=== PATIENT | female | born 1970 | race American Indian/Alaskan Native ===

== ENCOUNTER 2018-05-17 17:23 | Emergency (ER) | payer OTHER ==
--- NOTE | 2018-05-17 17:28 | Emergency Department Report ---
Blank Doc - Documentation Documentation: This is a 47-year-old female that presents with difficulty swallowing. Patient denies any pain. This initial assessment/diagnostic orders/clinical plan/treatment(s) is/are subject to change based on patient's health status, clinical progression and re- assessment by fellow clinical providers in the ED. Further treatment and workup at subsequent clinical providers discretion. Patient/guardians urged not to elope from the ED as their condition may be serious if not clinically assessed and managed. Initial orders include: 1- Patient sent to [facility] for further evaluation and treatment
--- NOTE | 2018-05-17 20:05 | Emergency Department Report ---
ED Anxiety HPI - General Chief Complaint: Anxiety Stated Complaint: (R) SHOULDER PAIN/TOOTH ACHE Time Seen by Provider: 05/17/18 17:27 Source: patient Mode of arrival: Ambulatory - History of Present Illness Initial Comments: 47-year-old -L[place] female comes in reporting that she feels that she's had anxiety attack. Patient reports that this is happening 3 times in the last 2 weeks. Patient states that when she has her bad information from family members and friends mixer overwhelmed where she feels like her heart races gets emotional and often cries. Patient also reports that her throat feels for 2 days and has a dry mouth the patient also reports she has not had any water today. Patient complains that she is thirsty but has not had any water. Patient has a past medical history of bronchial asthma when she was young. Patient currently does not have a primary care provider. Patient denies any fever or chills no nausea no vomiting no chest pain no shortness of breath. Patient also complains that she feels that she has gained so much weight where she has discomfort under her chin and her neck where she cannot get comfortable. Patient reports she has an allergy to Percocet that it makes her itch but she can have Tylenol. MD Complaint: anxiety -: week(s) (2-3) Symptoms: palpitations, dry mouth, sense of impending doom Place: home Previous History of Same: No Severity: moderate Quality: intermittant Provoking factors: emotional stress Improves With: nothing Worsens With: thinking about event Associated symptoms: palpitations - Related Data Home Medications: Previous Rx's Medication Instructions Recorded Last Taken Type PARoxetine [Paxil] 10 mg PO DAILY #30 tablet 05/17/18 Unknown Rx Allergies/Adverse Reactions: Allergies Allergy/AdvReac Type Severity Reaction Status Date / Time acetaminophen [From Percocet] Allergy Itching Verified 05/17/18 17:24 oxycodone [From Percocet] Allergy Itching Verified 05/17/18 17:24 ED Review of Systems ROS: Stated complaint: (R) SHOULDER PAIN/TOOTH ACHE Other details as noted in HPI ED Past Medical Hx - Past Medical History Previous Medical History?: No - Surgical History Past Surgical History?: No - Social History Smoking Status: Never Smoker Substance Use Type: None - Medications Home Medications: Home Medications Medication Instructions Recorded Confirmed Last Taken Type PARoxetine [Paxil] 10 mg PO DAILY #30 tablet 05/17/18 Unknown Rx ED Physical Exam - General Limitations: No Limitations ED Course Vital Signs 05/17/18 17:27 Temperature 99.3 F Pulse Rate 87 Respiratory 16 Rate Blood Pressure 153/92 [Left] O2 Sat by Pulse 98 Oximetry ED Medical Decision Making - Medical Decision Making Patient has been evaluated by this provider and [facility]. Just the patient I will try her on Paxil 10 mg by mouth daily with one refill so she will have time to follow up with [facility]. Also discussed with patient to follow up with a dentist as she has multiple dental caries. N discussed with patient to follow up with her primary care provider referred her to [facility]. Patient verbalized understanding. Critical care attestation.: If time is entered above; I have spent that time in minutes in the direct care of this critically ill patient, excluding procedure time. ED Disposition Clinical Impression: Anxiety and depression, Dental caries, Obesity (BMI 35.0-39.9 without comorbidity) Disposition: TO HOME OR SELFCARE Is pt being admited?: No Does the pt Need Aspirin: No Condition: Stable Instructions: Anxiety (ED), Depression (ED), Obesity (ED) Additional Instructions: Please take anxiety medication as prescribed. It is very important for you to follow up with [facility] I have listed their information below. It is very important for you to follow up with the dentist I have listed several below for your convenience. I have also listed several primary care providers that she can follow-up to work on your goals of losing weight. Prescriptions: PARoxetine [Paxil] 10 mg PO DAILY #30 tablet Referrals: ASHLEY MARTINEZ MD [Primary Care Provider] - 3-5 Days [facility] [Outside] - 3-5 Days [facility] [Outside] - 3-5 Days [facility] [Outside] - 3-5 Days [facility] [Outside] - 3-5 Days [facility] [Outside] - 3-5 Days [facility] [Outside] - 3-5 Days [facility] [Outside] - 3-5 Days
[2018-05-17 20:34] VITALS: BP 128/85
== END 2018-05-17 20:34 | disposition home or self-care (01) ==
LOC: ED 17:23
DX: F41.9 Anxiety disorder, unspecified (principal); F32.9 Major depressive disorder, single episode, unspecified; K02.9 Dental caries, unspecified; J45.909 Unspecified asthma, uncomplicated; E66.9 Obesity, unspecified; Z68.35 Body mass index [BMI] 35.0-35.9, adult; Z88.6 Allergy status to analgesic agent; Z88.5 Allergy status to narcotic agent

== ENCOUNTER 2018-09-17 10:57 | Emergency (ER) | payer OTHER ==
--- NOTE | 2018-09-17 11:31 | Event Note ---
ED Screening Note ED Screening Note: states she has had pain and edema in the bilateral feet for two weeks states she fell down the steps two weeks ago states she tripped and fell states she has been using RICE therapy currently on menstrual cycle no PMHx allergy to oxycodone This initial assessment/diagnostic orders/clinical plan/treatment(s) is/are subject to change based on patients health status, clinical progression and re- assessment by fellow clinical providers in the ED. Further treatment and workup at subsequent clinical providers discretion. Patient/guardian urged not to elope from the ED as their condition may be serious if not clinically assessed and managed. Initial orders include: XR bilateral feet
--- NOTE | 2018-09-17 12:32 | XRay Report ---
BILATERAL FEET, 3 VIEWS INDICATION: Fall. Acute bilateral foot pain COMPARISON: None. IMPRESSION: No acute osseous or soft tissue abnormality. 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 No erosive joint pathology. Signer Name: Justo Hagan Jr, MD Signed: 09/17/2018 12:27 PM Workstation Name: [id number]
[2018-09-17] MEDS ORDERED: TORADOL IM ONE (12:53)
--- NOTE | 2018-09-17 12:57 | Emergency Department Report ---
ED Extremity Problem HPI - General Chief complaint: Extremity Injury, Lower Stated complaint: FOOT PAIN Time Seen by Provider: 09/17/18 11:29 Source: patient Mode of arrival: Ambulatory Limitations: No Limitations - History of Present Illness Initial comments: 48-year-old -[place]oc[place] female presents to the emergency room for bilateral foot pain and swelling after a fall 2 weeks ago. Patient reports little relief from elevation ice. Complaint: extremity pain Onset/Timin -: week(s) Location: bilateral lower extremity, other (feet) History of Same: No -: Yes arthralgia Radiation: proximal Severity scale (0 -10): 7 Quality: stabbing, aching Consistency: constant Improves with: rest Worsens with: weight bearing Associated Symptoms: denies other symptoms - Related Data Previous Rx's Medication Instructions Recorded Last Taken Type PARoxetine [Paxil] 10 mg PO DAILY #30 tablet 05/17/18 Unknown Rx Ibuprofen [Motrin 800 MG tab] 800 mg PO Q8HR PRN #30 tablet 09/17/18 Unknown Rx Allergies Allergy/AdvReac Type Severity Reaction Status Date / Time acetaminophen [From Percocet] Allergy Itching Verified 07/28/18 08:18 oxycodone [From Percocet] Allergy Itching Verified 07/28/18 08:18 ED Review of Systems ROS: Stated complaint: FOOT PAIN Other details as noted in HPI Comment: All other systems reviewed and negative ED Past Medical Hx - Past Medical History Previous Medical History?: No - Surgical History Past Surgical History?: No - Social History Smoking Status: Never Smoker Substance Use Type: None - Medications Home Medications: Home Medications Medication Instructions Recorded Confirmed Last Taken Type PARoxetine [Paxil] 10 mg PO DAILY #30 tablet 05/17/18 Unknown Rx Ibuprofen [Motrin 800 MG tab] 800 mg PO Q8HR PRN #30 tablet 09/17/18 Unknown Rx ED Physical Exam - General Limitations: No Limitations General appearance: alert, in no apparent distress - Head Head exam: Present: atraumatic, normocephalic - Eye Eye exam: Present: normal appearance - ENT ENT exam: Present: mucous membranes moist - Extremities Exam Extremities exam: Present: full ROM (bilateral), tenderness (bilateral), joint swelling (bilateral) - Back Exam Back exam: Present: full ROM - Neurological Exam Neurological exam: Present: alert, oriented X3 - Psychiatric Psychiatric exam: Present: normal affect, normal mood - Skin Skin exam: Present: warm, dry, intact, normal color. Absent: rash ED Course Vital Signs 09/17/18 11:29 Temperature 98 F Pulse Rate 62 Respiratory 18 Rate Blood Pressure 125/83 O2 Sat by Pulse 98 Oximetry ED Medical Decision Making - Radiology Data Radiology results: report reviewed Patient: EDIL DURAN MR#: [id number] : 1970 Acct:[id number] Age/Sex: 48 / F ADM Date: 09/17/18 Loc: ED Attending Dr: Ordering Physician: MICHEL DENG Date of Service: 09/17/18 Procedure(s): XR foot BILAT 3+V Accession Number(s): [id number] cc: MICHEL DENG Fluoro Time In Minutes: BILATERAL FEET, 3 VIEWS INDICATION: Fall. Acute bilateral foot pain COMPARISON: None. IMPRESSION: No acute osseous or soft tissue abnormality. 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 No erosive joint pathology. Signer Name: Justo Hagan Jr, MD Signed: 09/17/2018 12:27 PM Workstation Name: [id number] Transcribed By: TTR Dictated By: JUSTO HAGAN JR, MD Electronically Authenticated By: JUSTO HAGAN JR, MD Signed Date/Time: 09/17/18 1227 DD/ 1225 TD/TT: - Medical Decision Making 48-year-old female comes in for bilateral feet pain and swelling. Toradol injection 30 mg IM. Discussed the patient to take ibuprofen every 8 hours when necessary. Discussed the patient to take it breakfast but in general for the next few days as to not let the pain get to a 10. Also discussed the patient she needs to increase her water intake take it with food. And if symptoms persist or get worse she can follow-up with Dr. Ansari. Patient verbalized understanding. Critical care attestation.: If time is entered above; I have spent that time in minutes in the direct care of this critically ill patient, excluding procedure time. ED Disposition Clinical Impression: Foot pain, bilateral Disposition: DC-01 TO HOME OR SELFCARE Is pt being admited?: No Does the pt Need Aspirin: No Condition: Stable Additional Instructions: Take ibuprofen as needed take with plenty of fluids and take with breakfast and lunch and dinner. Follow-up with Dr. Ansari if her symptoms persist or gets worse. Prescriptions: Ibuprofen [Motrin 800 MG tab] 800 mg PO Q8HR PRN #30 tablet PRN Reason: Pain , Severe (7-10) Referrals: DYLLAN NIELSENBROCKTON MD [facility] [Primary Care Provider] - 3-5 Days MATEO ANSARI MD [Staff Physician] - 3-5 Days
[2018-09-17 13:34] VITALS: BP 124/81
== END 2018-09-17 13:34 | disposition home or self-care (01) ==
LOC: ED 10:57
DX: M79.672 Pain in left foot (principal); M79.671 Pain in right foot; Z79.899 Other long term (current) drug therapy; Z88.6 Allergy status to analgesic agent; W18.30XA Fall on same level, unspecified, initial encounter; Y93.89 Activity, other specified; Y92.89 Other specified places as the place of occurrence of the external cause; Y99.8 Other external cause status
CPT/HCPCS: 73630; 99283; J1885

== ENCOUNTER 2021-01-06 12:12 | Emergency (ER) | payer SELFPAY ==
--- NOTE | 2021-01-06 12:49 | Emergency Department Report ---
ED Chest Pain HPI - General Chief Complaint: Chest Pain Stated Complaint: CHEST AND SHOULDER PAIN Time Seen by Provider: 01/06/21 12:44 Source: patient Mode of arrival: Ambulatory Limitations: No Limitations - History of Present Illness Initial Comments: Chief complaint: Chest area hurting HPI: This 50-year-old female with history of anxiety and depression who presents with back pain after fall 2 months ago. She has had back pain and generalized paresthesias throughout her body. Today she developed chest pain. Attention sensation. She thought it was in her breast due to abundant tissue. She had a sticking sensation briefly this morning. She had left arm numbness. She denies shortness of breath, fever, abdominal pain. MD Complaint: chest pain -: Gradual, This morning Onset: during rest Severity: mild Quality: sharp Consistency: now resolved Improves With: nothing Worsens With: nothing Treatments Prior to Arrival: none - Related Data Previous Rx's Medication Instructions Recorded Last Taken Type PARoxetine [Paxil] 10 mg PO DAILY #30 tablet 05/17/18 Unknown Rx Ibuprofen [Motrin 800 MG tab] 800 mg PO Q8HR PRN #30 tablet 09/17/18 Unknown Rx Cyclobenzaprine [Flexeril] 10 mg PO TID PRN #20 tablet 01/06/21 Unknown Rx Ibuprofen [Motrin 400 MG tab] 400 mg PO TID 5 Days #15 tablet 01/06/21 Unknown Rx Allergies Allergy/AdvReac Type Severity Reaction Status Date / Time acetaminophen [From Percocet] Allergy Itching Verified 01/06/21 12:25 oxycodone [From Percocet] Allergy Itching Verified 01/06/21 12:25 Heart Score - HEART Score History: Slightly suspicious EKG: Normal Age: 45-65 Risk factors: No known risk factors Troponin: < normal limit HEART Score: 1 - EKG Read Time Time EKG Completed: 12:17 EKG Read Time: 12:23 - Critical Actions Critical Actions: 0-3 pts:0.9-1.7%risk of adverse cardiac event.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 ED Review of Systems ROS: Stated complaint: CHEST AND SHOULDER PAIN Other details as noted in HPI Comment: All other systems reviewed and negative Constitutional: denies: chills, fever, malaise Respiratory: denies: cough, shortness of breath Cardiovascular: chest pain Neurological: denies: headache ED Past Medical Hx - Past Medical History Previous Medical History?: Yes Hx Psychiatric Treatment: Yes (Anxiety depression) - Family History Family history: hypertension - Social History Smoking Status: Never Smoker Substance Use Type: None - Medications Home Medications: Home Medications Medication Instructions Recorded Confirmed Last Taken Type PARoxetine [Paxil] 10 mg PO DAILY #30 tablet 05/17/18 Unknown Rx Ibuprofen [Motrin 800 MG tab] 800 mg PO Q8HR PRN #30 tablet 09/17/18 Unknown Rx Cyclobenzaprine [Flexeril] 10 mg PO TID PRN #20 tablet 01/06/21 Unknown Rx Ibuprofen [Motrin 400 MG tab] 400 mg PO TID 5 Days #15 tablet 01/06/21 Unknown Rx ED Physical Exam - General Limitations: No Limitations General appearance: alert, in no apparent distress - Head Head exam: Present: atraumatic, normocephalic - Eye Eye exam: Present: normal appearance - ENT ENT exam: Present: mucous membranes moist - Neck Neck exam: Present: normal inspection, full ROM - Respiratory Respiratory exam: Present: normal lung sounds bilaterally. Absent: respiratory distress, wheezes, rales, rhonchi - Cardiovascular Cardiovascular Exam: Present: regular rate, normal rhythm, normal heart sounds. Absent: systolic murmur, diastolic murmur, rubs, gallop - GI/Abdominal GI/Abdominal exam: Present: soft, normal bowel sounds. Absent: distended, tenderness, guarding, rebound - Extremities Exam Extremities exam: Present: normal inspection - Neurological Exam Neurological exam: Present: alert, oriented X3 - Psychiatric Psychiatric exam: Present: normal affect, normal mood - Skin Skin exam: Present: warm, dry, intact, normal color. Absent: rash ED Course Vital Signs 01/06/21 12:25 Temperature 97.7 F Pulse Rate 76 Respiratory 18 Rate Blood Pressure 143/93 O2 Sat by Pulse 98 Oximetry ED Medical Decision Making - Lab Data Result diagrams: 01/06/21 13:03 01/06/21 13:13 Laboratory Results - last 24 hr 01/06/21 01/06/21 13:03 13:13 WBC 4.6 RBC 4.51 Hgb 11.7 Hct 35.6 MCV 79 MCH 26 L MCHC 33 RDW 15.6 H Plt Count 268 Sodium 138 Potassium 3.8 Chloride 103.3 Carbon Dioxide 21 L Anion Gap 18 BUN 7 Creatinine 0.5 L Estimated GFR > 60 BUN/Creatinine Ratio 14 Glucose 138 H Calcium 9.4 Troponin T < 0.010 - EKG Data -: EKG Interpreted by Me EKG shows normal: sinus rhythm, axis, intervals, QRS complexes, ST-T waves Rate: normal - EKG Data Interpretation: normal EKG 01/06/21 14:02 EKG obtained 1217 EKG interpreted by me Rate 65 bpm normal sinus rhythm normal rate normal axis normal intervals no ST elevation no ST-T signs of ischemia normal EKG - Medical Decision Making Chest wall pain: Heart score 1. This is noncardiac chest pain. No indication of ACS. Patient stated that she really came to be evaluated for back pain for the last 2 months. No indication for cardiology follow-up. Prescribed ibuprofen and Flexeril. No evidence of severe injury from fall 2 months ago. Critical care attestation.: If time is entered above; I have spent that time in minutes in the direct care of this critically ill patient, excluding procedure time. ED Disposition Clinical Impression: Chest wall pain Disposition: 01 HOME / SELF CARE / HOMELESS Is pt being admited?: No Does the pt Need Aspirin: No Condition: Stable Instructions: Chest Wall Pain, Nonspecific Chest Pain, Adult Prescriptions: Cyclobenzaprine [Flexeril] 10 mg PO TID PRN #20 tablet PRN Reason: Muscle Spasm Ibuprofen [Motrin 400 MG tab] 400 mg PO TID 5 Days #15 tablet Referrals: MISSY CASTILLO MD [Staff Physician] - 3-5 Days
[2021-01-06 13:29] LABS: Hematocrit 35.6 % (30.3-42.9); Hemoglobin 11.7 gm/dl (10.1-14.3); Mean Corpuscular HGB Conc 33 % (30-34); Mean Corpuscular Volume 79 fl (79-97); Platelet Count 268 K/mm3 (140-440); Red Blood Count 4.51 M/mm3 (3.65-5.03); Red Cell Distribution Width 15.6 % (13.2-15.2)
[2021-01-06 13:51] LABS: Blood Urea Nitrogen 7 mg/dL (7-17); Calcium 9.4 mg/dL (8.4-10.2); Hemolysis Index 7
[2021-01-06 13:58] LABS: BUN/Creatinine Ratio 14
[2021-01-06 14:06] LABS: Anisocytosis 1+; Hypochromasia 1+; Platelet Estimate Consistent w Auto; Total Cells Counted 100
[2021-01-06 14:22] VITALS: BP 155/97
--- NOTE | 2021-01-06 17:51 | Electrocardiograph Report ---
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
== END 2021-01-06 14:21 | disposition home or self-care (01) ==
LOC: ED 12:12
DX: R07.89 Other chest pain (principal); F41.9 Anxiety disorder, unspecified; F32.9 Major depressive disorder, single episode, unspecified; Z88.5 Allergy status to narcotic agent; Z88.6 Allergy status to analgesic agent
CPT/HCPCS: 36415; 80048; 84484; 85007; 85025; 93005; 99283